=== PATIENT | male | born 1985 | race African-American/Black ===

== ENCOUNTER 2019-09-15 17:25 | Emergency (ER) | payer OTHER ==
[~2019-09-15] VITALS: Ht 182.9 cm; Wt 91.8 kg
[2019-09-15 17:31] VITALS: Ht 182.9 cm; Wt 91.8 kg
[2019-09-15 18:17] LABS: BASOPHILS 0.4 % (0-2); EOSINOPHILS 2.2 % (0-7); HEMATOCRIT 43.4 % (42.0-54.0); HEMOGLOBIN 14.6 g/dL (13.5-17.5); IMMATURE GRANULOCYTES 0.1 % (0-5); LYMPHOCYTES 27.8 % (15-50); MCH 31.1 pg (26.0-34.0); MCHC 33.6 g/dL (31.0-37.0); MCV 92.3 fL (80.0-100.0); MEAN PLATELET VOLUME 9.5 fL (7.4-10.4); MONOCYTES 7.3 % (2-11); NEUTROPHILS 62.2 % (40-80); PLATELET COUNT 373 10x3/uL (130-400); RDW 12.6 % (11.5-14.5); WBC 6.8 10x3/uL (4.8-10.8)
[2019-09-15 18:25] LABS: INR 0.92 (0.85-1.17); PROTIME 12.3 SECONDS (11.6-15.0)
[2019-09-15 18:26] LABS: ANION GAP 7.6 mmol/L (8-16); CALCIUM 9.3 mg/dL (8.5-10.1); CARBON DIOXIDE 33.9 mmol/L (21.0-32.0); CREATININE - SERUM 1.5 mg/dL (0.6-1.3); POTASSIUM - SERUM 4.5 mmol/L (3.5-5.1)
[2019-09-15 18:34] LABS: ALBUMIN 4.3 g/dL (3.4-5.0); BILIRUBIN - TOTAL 0.49 mg/dL (0.2-1.3)
[2019-09-15] MEDS ORDERED: HYDROCODON-ACE1 EAC2 PO (18:48)
[2019-09-15] MEDS ORDERED: KEFLEX500 MG PO (18:48)
[2019-09-15 19:38] VITALS: BP 125/77
--- NOTE | 2019-09-16 09:12 | PRO ---
PATIENT:RADHA VAN MEDICAL RECORD: [id number] : 85 LOCATION:[facility] ADMISSION DATE: 09/15/19 PROCEDURE PERFORMED BY: FELECIA FITCH DO DATE OF PROCEDURE: 09/15/2019 PROCEDURE PERFORMED: Right index finger closed reduction and irrigation and laceration repair of the right index finger. PREOPERATIVE DIAGNOSIS: Open dislocation of the right index proximal interphalangeal joint. POSTOPERATIVE DIAGNOSIS: Open dislocation of the right index proximal interphalangeal joint. INDICATIONS: Mr. Van is a 33-year-old inmate who is right hand dominant who was playing volleyball, he said and had his finger snapped back and lacerated on the net dislocating his middle phalanx radially. He was then brought to the ER and x-rays were done and seen to have that. I saw him in the ER and told them that I would numb that up, reduce it and wash out his wound and close it, but he would need to have antibiotics and he would need to move his finger in order for it not getting stiff. He is aware of the risks including infection, bleeding, damage to nerves or vessels in the area. Informed that he may have nerve damage already due to the fact that the laceration covered the right at the crease of the PIP joint on the volar plant or palmar side. He was aware of that. DESCRIPTION OF PROCEDURE: I took 10 mL of 0.25% Marcaine with epinephrine, did digital block. When he was quite numb, I then reduced the PIP joint and assured and had him flex and extend it and ensuring that it was indeed reduced and moved. I then prepped the area with Betadine and irrigated out the laceration, which was approximately 3 cm right at the crease of the PIP joint on the volar aspect. Irrigated it out with 30 mL of normal saline. Then, using 4-0 nylon that a horizontal mattress suture that closed the laceration. I then cleaned his hand and covered it with a Band-Aid. Post-reduction films were done showing that the finger was reduced. He had been given a gram of Ancef in the ER and he tolerated the procedure well and was told to follow up as an outpatient. TRANSINT:[id number] Voice Confirmation ID: [id number] DOCUMENT ID: [id number] FELECIA FITCH DO at 0912 CC: [id number] DICTATION DATE: 09/15/191936 BRANCH ACCOUNT EXECUTIVE: 09/16/19 0429 DEP ER 09/15/19 [facility] [address] [facility] [place] [address]
== END 2019-09-15 19:39 | disposition home or self-care (01) ==
LOC: D.ER 17:25
PROVIDERS: Family Medicine
DX: S63.280A Dislocation of proximal interphalangeal joint of right index finger, initial encounter (principal); W50.0XXA Accidental hit or strike by another person, initial encounter; Y93.68 Activity, volleyball (beach) (court); Y92.149 Unspecified place in prison as the place of occurrence of the external cause